=== PATIENT | female | born 1960 | race Caucasian/White ===

== ENCOUNTER 2018-01-02 09:42 | Emergency (ER) | payer MEDICARE, MEDICAID ==
[2018-01-02 09:48] VITALS: BP 145/82
--- NOTE | 2018-01-02 11:03 | ER Document Report ---
HPI - HPI Pain Level: 4 Notes: Patient is a 57-year-old female who presents with chief complaint of neck pain and back pain after sustaining a fall 3 weeks ago. Patient reports she fell through a floor and landed in the crawl space below. Patient reports she saw her chronic pain doctor for this however she would like x-rays done at this time. Patient is also requesting refill of her Adderall that she states she left at her apartment when she was moving out. Patient ambulated into the department with a steady gait, patient with normal range of motion noted. Patient denies any loss of bowel or bladder. Past Medical History - General Information source: Patient - Social History Smoking Status: Current Some Day Smoker Frequency of alcohol use: None Drug Abuse: None Family History: Reviewed & Not Pertinent - Medical History Medical History: Other - Chronic pain Surgical Hx: Negative - Immunizations Immunizations up to date: No Vertical Provider Document - CONSTITUTIONAL Notes: PHYSICAL EXAMINATION: GENERAL: Well-appearing, well-nourished and in no acute distress. HEAD: Atraumatic, normocephalic. EYES: Pupils equal round and reactive to light, extraocular movements intact, conjunctiva are normal. ENT: Nares patent, oropharynx clear without exudates. Moist mucous membranes. NECK: Normal range of motion, supple without lymphadenopathy LUNGS: Breath sounds clear to auscultation bilaterally and equal. No wheezes rales or rhonchi. HEART: Regular rate and rhythm without murmurs ABDOMEN: Soft, nontender, nondistended abdomen. No guarding, no rebound. No masses appreciated. Female : deferred Musculoskeletal: Normal range of motion, no pitting or edema. No cyanosis. NEUROLOGICAL: Cranial nerves grossly intact. Normal speech, normal gait. Normal sensory, motor exams PSYCH: Normal mood, normal affect. SKIN: Warm, Dry, normal turgor, no rashes or lesions noted. - INFECTION CONTROL TRAVEL OUTSIDE OF THE [place] IN LAST 30 DAYS: No Course - Re-evaluation Re-evalutation: 01/02/18 11:01 Patient's physical examination is benign. Will order the x-rays as requested by patient's primary care provider and provide her with a copy of the reports. I did explain to patient that we do not refill controlled substances. Patient verbalizes disagreement with this. Encouraged patient to follow-up with her primary care doctor who she states she is going to see tomorrow as they can refill whatever prescriptions they see appropriate. Patient decided to leave the emergency department prior to the radiologist reading her x-rays. I did have her sign AMA paperwork. Patient returns to the emergency department requesting copies of her radiology reports, I did review these reports, all are negative for any acute findings. I did discuss this with the patient and I will provide her with the radiology report so that she can follow-up with her primary care/chronic pain doctor. - Vital Signs Vital signs: Temp Pulse Resp BP Pulse Ox 97.9 F 59 L 18 145/82 H 100 01/02/18 09:48 01/02/18 09:48 01/02/18 09:48 01/02/18 09:48 01/02/18 09:48 Discharge - Discharge Clinical Impression: Medication requested by patient but not prescribed or administered Fall Qualifiers: Encounter type: initial encounter Qualified Code(s): W19.XXXA - Unspecified fall, initial encounter Condition: Stable Disposition: HOME, SELF-CARE Additional Instructions: You have declined to stay and wait for the radiologist to read your x-rays today. I cannot be sure if there are any fractures or dislocations without an official radiology report. Please contact your primary care provider regarding your request for a refill of your Adderall as we do not refill controlled substances in the emergency department. Please take ibuprofen 600 mg every 6 hours as needed for pain relief.
--- NOTE | 2018-01-02 12:49 | RADIOLOGY REPORT (SQ) ---
EXAM DESCRIPTION: T SPINE AP/LAT COMPLETED DATE/TIME: 01/02/2018 12:14 pm REASON FOR STUDY: fall, pain fall injury pain thoracic spine COMPARISON: None. NUMBER OF VIEWS: Two views. TECHNIQUE: AP and lateral radiographic images acquired of the thoracic spine. LIMITATIONS: None. FINDINGS: MINERALIZATION: Normal. ALIGNMENT: Normal. No scoliosis. VERTEBRAE: No fracture or bone lesion. Maintained height, normal segmentation. DISCS: Mild disc space loss of height anteriorly at T7-8, T8-9, T9-10. HARDWARE: None in the spine. MEDIASTINUM AND SOFT TISSUES: Normal heart size and aortic contour. No soft tissue abnormality. VISUALIZED LUNG IRBY: Clear. OTHER: No other significant finding. IMPRESSION: No acute fracture or malalignment TECHNICAL DOCUMENTATION: JOB ID: [id number] [employer]- All Rights Reserved Reading location - IP/workstation name: [email or web address]
--- NOTE | 2018-01-02 12:50 | RADIOLOGY REPORT (SQ) ---
EXAM DESCRIPTION: L SPINE WHOLE COMPLETED DATE/TIME: 01/02/2018 12:14 pm REASON FOR STUDY: fall, pain fall injury lumbar spine pain COMPARISON: None. NUMBER OF VIEWS: Five views including obliques. TECHNIQUE: AP, lateral, oblique, and sacral radiographic images acquired of the lumbar spine. LIMITATIONS: None. FINDINGS: MINERALIZATION: Normal. SEGMENTATION: Normal. No transitional anatomy. ALIGNMENT: Minimal grade 1 anterolisthesis of L4 over L5 VERTEBRAE: Maintained height. No fracture or worrisome bone lesion. DISCS: Preserved height. No significant osteophytes or end plate irregularity. POSTERIOR ELEMENTS: Pedicles and facets are intact. No pars defect or posterior arch defects. Bilat eral facet arthropathy at L3-4, L4-5, and L5-S1 HARDWARE: None in the spine. PARASPINAL SOFT TISSUES: Normal. PELVIS: Not in the field of view. Limited view of the SI joints unremarkable OTHER: No other significant finding. IMPRESSION: Mild lower lumbar degenerative changes. No acute fracture or malalignment. TECHNICAL DOCUMENTATION: JOB ID: [id number] [employer]- All Rights Reserved Reading location - IP/workstation name: [email or web address]
--- NOTE | 2018-01-02 12:52 | RADIOLOGY REPORT (SQ) ---
EXAM DESCRIPTION: CERV SP 4 OR 5 VIEWS COMPLETED DATE/TIME: 01/02/2018 12:14 pm REASON FOR STUDY: fall, pain fall, injury, cervical spine pain COMPARISON: None. NUMBER OF VIEWS: Five views. TECHNIQUE: AP, lateral, obliques and odontoid radiographic images acquired of the cervical spine. LIMITATIONS: None. FINDINGS: MINERALIZATION: Normal. ALIGNMENT: Reversal of cervical curvature likely due to muscle spasm VERTEBRAE: Vertebral bodies of normal height. DISCS: Disc space loss of height with anterior and posterior osteophyte formation at C4-5, C5-6, and C6-7. FORAMINA: Moderate bilateral foraminal narrowing at C4-5, C5-6, and C6-7 LATERAL AND POSTERIOR ELEMENTS: Facets, lateral masses and spinous processes without significant find ings. HARDWARE: None in the spine. SOFT TISSUES: No masses or calcifications. Lung apices clear. OTHER: No other significant finding. IMPRESSION: Degenerative disc changes. No acute fracture. Straightening of cervical lordosis likel y due to muscle spasm TECHNICAL DOCUMENTATION: JOB ID: [id number] [employer]- All Rights Reserved Reading location - IP/workstation name: [email or web address]
== END 2018-01-02 12:44 | disposition home or self-care (01) ==
LOC: ER 09:42
DX: M54.2 Cervicalgia (principal); M54.9 Dorsalgia, unspecified; W13.3XXA Fall through floor, initial encounter; F17.200 Nicotine dependence, unspecified, uncomplicated
CPT/HCPCS: 72050; 72070; 72110; 99283